=== PATIENT | male | born 1945 | race African-American/Black ===

== ENCOUNTER 2017-06-09 09:11 | Outpatient (CLI) | payer OTHER ==
[~2017-06-09] VITALS: Ht 188 cm; Wt 122.5 kg
[2017-06-09] MEDS ORDERED: CAPTOPRIL 25 MG TABLET PO ONE (09:45)
== END 2017-06-09 20:30 | disposition home or self-care (01) ==
LOC: SNM 09:11
PROVIDERS: ATTEND Internal Medicine
DX: I12.9 Hypertensive chronic kidney disease with stage 1 through stage 4 chronic kidney disease, or unspecified chronic kidney disease (principal); N18.3 Chronic kidney disease, stage 3 (moderate)
CPT/HCPCS: 78707; A9562

== ENCOUNTER 2017-06-10 09:32 | Outpatient (CLI) | payer OTHER | END 2017-06-10 19:57 | disposition home or self-care (01) | LOC: SNM 09:32 | PROVIDERS: ATTEND Internal Medicine | DX: I12.9 Hypertensive chronic kidney disease with stage 1 through stage 4 chronic kidney disease, or unspecified chronic kidney disease (principal); N18.3 Chronic kidney disease, stage 3 (moderate) | CPT/HCPCS: 78707; A9562 ==